=== PATIENT | female | born 1940 | race Two or more races ===

== ENCOUNTER → 2017-05-15 16:15 | Outpatient (CLI) | payer OTHER | END | disposition home or self-care (01) | LOC: RAD 16:15 | DX: J45.998 Other asthma (principal) ==

== ENCOUNTER → 2017-07-13 | Emergency (ER) | payer OTHER ==
[~2017-07-13] VITALS: Ht 162.6 cm; Wt 68.0 kg
[~2017-07-13] MED LIST: DUI500 PO; TRAMADOL HCL50 MG PO; ULTRACET PO
== END | disposition home or self-care (01) ==
LOC: ER 17:36
DX: S82.435A Nondisplaced oblique fracture of shaft of left fibula, initial encounter for closed fracture (principal); M12.572 Traumatic arthropathy, left ankle and foot; W18.39XA Other fall on same level, initial encounter; Y93.89 Activity, other specified; Y92.098 Other place in other non-institutional residence as the place of occurrence of the external cause; Y99.8 Other external cause status

== ENCOUNTER 2017-07-18 11:10 | Day surgery (SDC) | payer OTHER ==
[~2017-07-18 11:10] MED LIST changes: -DUI500 PO; -ULTRACET PO
[2017-07-18] MEDS ORDERED: ULTRACET PO (15:39)
[2017-07-18] MEDS ORDERED: DUI500 PO (15:39)
== END 2017-07-18 18:00 | disposition home or self-care (01) ==
LOC: CIR.AMB 11:10
DX: S82.842A Displaced bimalleolar fracture of left lower leg, initial encounter for closed fracture (principal); S93.421A Sprain of deltoid ligament of right ankle, initial encounter; S86.892A Other injury of other muscle(s) and tendon(s) at lower leg level, left leg, initial encounter

== ENCOUNTER 2018-02-21 12:26 | Outpatient (CLI) | payer OTHER ==
[~2018-02-21 12:26] MED LIST changes: +DUI500 PO; +ULTRACET PO
== END 2018-02-21 12:45 | disposition home or self-care (01) ==
LOC: RAD 12:26
DX: M25.512 Pain in left shoulder (principal); M25.511 Pain in right shoulder; M75.42 Impingement syndrome of left shoulder; M75.41 Impingement syndrome of right shoulder; M75.32 Calcific tendinitis of left shoulder

== ENCOUNTER 2024-02-13 14:32 | Outpatient (CLI) | payer OTHER ==
[~2024-02-13 14:32] MED LIST changes: +FOSAMAX70 MG; +HYDROCHLOROTH12.5 M1; +LIPITOR20 MG
== END 2024-02-13 15:00 | disposition home or self-care (01) ==
LOC: MRI 14:32
DX: M25.511 Pain in right shoulder (principal); M25.512 Pain in left shoulder
CPT/HCPCS: 73221